=== PATIENT | female | born 1975 | race Caucasian/White ===

== ENCOUNTER 2021-04-28 04:38 | Day surgery (SDC) | payer OTHER ==
[2021-04-27 08:03] VITALS: BMI 22.7
[2021-04-28 09:28] LABS: BASO % 0.7 % (0-2.0); EOS % 2.3 % (0-4.5); HEMATOCRIT 29.7 % (32.4-45.2); HEMOGLOBIN 9.7 GM/dL (10.7-15.3); LYMPH % 15.1 % (8-40); MCH 25.9 pg (25.7-33.7); MCHC 32.8 g/dl (32.0-36.0); MEAN CELL VOLUME 78.9 fl (80-96); MEAN PLT VOLUME 8.1 fl (7.5-11.1); MONO % 12.8 % (3.8-10.2); NEUT % 69.1 % (42.8-82.8); PLATELET COUNT 334 10^3/uL (134-434); RBC 3.76 M/mm3 (3.60-5.2); RDW 15.6 % (11.6-15.6); WHITE BLOOD COUNT 8.3 K/mm3 (4.0-10.0)
[2021-04-28 09:31] LABS: INR 1.22 (0.83-1.09); PROTHROMBIN TIME (PATIENT) 14.9 SEC (9.7-13.0)
[2021-04-28] MEDS ORDERED: SODIUM CHLORIDE 500 ML IV SCH (11:45)
[2021-04-28] MEDS ORDERED: MIDAZOLAM HCL 2 MG/2 ML SINGLE DOSE VIAL IVPUSH ONE (12:00)
[2021-04-28 14:51] VITALS: BP 114/64; PULSE 89; TEMP 98.2
== END 2021-04-28 14:48 | disposition home or self-care (01) ==
LOC: JRADIR 04:38
PROVIDERS: ATTEND Internal Medicine Pulmonary Disease
PROC: 0WBC3ZX Excision of Mediastinum, Percutaneous Approach, Diagnostic (ICD-10-PCS; principal; 2021-04-28)
DX: R22.2 Localized swelling, mass and lump, trunk (principal)
CPT/HCPCS: 32408; 36415; 71046-TC-FY; 76098-TC-FY; 77012-TC; 84703; 85025; 85610; 87899; 88305-TC